=== PATIENT | male | born 1995 | race Caucasian/White ===

== ENCOUNTER 2024-05-28 10:05 | Emergency (ER) | payer OTHER, SELFPAY ==
[2024-05-28] VITALS (19 sets, daily range): BP systolic 117–142; BP diastolic 77–110; PULSE 48–77; RESP 12–24; TEMP 36.6; O2SAT 98–100
--- NOTE | ~2024-05-28 | CT_ITS ---
EXAMINATION: CT abdomen pelvis w con DATE: 05/28/2024 11:20 INDICATION: Right lower quadrant abdominal pain TECHNIQUE: Computed tomography (CT) of the abdomen and pelvis was performed with 100 mL Omnipaque-350 intravenous contrast. Automated exposure control and iterative reconstruction technique were employe d. The dose-length product was 197.20 mGy-cm. COMPARISON: None FINDINGS: Lung bases are clear. Heart size is normal. No pericardial or pleural effusion. Indeterminate 2.3 cm hypodense lesion in the left hepatic lobe. Gallbladder, spleen, pancreas, bilateral adrenal glands an d left kidney are normal. 3 mm stone at the right ureteropelvic junction without hydronephrosis or de layed left right nephrogram. There are however a couple small radiating tracts of decreased enhanceme nt at the upper pole of the right kidney which raises concern for pyelonephritis. No other evident ur olithiasis. Bowels including the appendix are normal with no obstruction or abnormal wall thickening. Bladder and prostate are normal. No free intraperitoneal gas or fluid. No pathologically enlarged ab dominal or pelvic lymphadenopathy. Bones are unremarkable. IMPRESSION: 1. 3 mm nonobstructing stone at the right ureteropelvic junction with subtle bands of decreased paren chymal enhancement the upper pole of the right kidney raising concern for pyelonephritis. Correlate w ith urinalysis. 2. Indeterminate 2.3 cm hypodense left hepatic lobe lesion which in the absence of known liver diseas e or prior malignancy is most likely benign such as a hemangioma. Recommend follow-up with pre and po stcontrast MRI for more definitive determination. Reviewed, dictated and finalized at location A. IMPRESSION: 1. 3 mm nonobstructing stone at the right ureteropelvic junction with subtle ba nds of decreased parenchymal enhancement the upper pole of the right kidney [place] concern for pyelonephritis. Correlate with urinalysis. 2. Indeterminate 2.3 cm hypodense left hepatic lobe lesion which in the absence of known liver disease or prior malignancy is most likely benign such as a hem angioma. Recommend follow-up with pre and postcontrast MRI for more definitive determination.
--- NOTE | 2024-05-28 10:43 | ED.ABDPAIN ---
HPI - Abdominal Pain General Chief Complaint: Abdominal Pain Stated Complaint: RLQ pain, +nausea Time Seen by Provider: 05/28/24 10:21 History of Present Illness HPI narrative: 29-year-old male presents emergency department for evaluation for right lower quadrant pain that started this morning. Patient states yesterday he was feeling fine but woke up this morning with the pain. Patient had a bowel movement but this did not change his symptoms. Patient denies any diarrhea. Patient denies any prior abdominal surgical history. Patient suspects he may have a history of kidney stones but states this feels completely different. At time of evaluation patient declined medications for pain control and for nausea control. Related Data Allergies Allergy/AdvReac Type Severity Reaction Status Date / Time No Known Allergies Allergy Verified 05/28/24 10:42 Review of Systems Review of Systems: All systems reviewed & are unremarkable except as noted in HPI and below Exam Narrative: APPEARANCE: Well appearing, no pain, no distress, well-nourished. HEAD: normocephalic, atraumatic. EYES: PERRLA/EOMI, conjunctivae clear. NOSE: Normal no drainage EARS:TMS clear with good light reflex. THROAT: Pharynx clear, no exudate. NECK: Supple. No adenopathy, no masses. RESPIRATORY: Airway patent, respirations nonlabored. Clear to auscultation bilaterally, no rales, rhonchi, wheezing. CARDIOVASCULAR: Regular rate and rhythm without murmurs rubs or gallops. ABDOMINAL: Right lower quadrant tenderness to palpation, no right CVA tenderness, no rebound, no guarding MUSCULOSKELETAL: Moves all extremities. Strength/ROM intact, No edema, No calf tenderness. NEURO: Alert. Cranial nerves II through XII intact. SKIN: Warm, dry. Normal Color PSYCHIATRIC: Normal affect/mood. Course Course Emergency Course: Patient felt improved treatment patient was discharged home Vital Signs Vital signs: Vital Signs Temperature 97.8 F 05/28/24 10:06 Pulse Rate 60 05/28/24 10:06 Respiratory Rate 18 05/28/24 10:06 Blood Pressure 123/83 05/28/24 10:06 Pulse Oximetry 98 05/28/24 10:06 Oxygen Delivery Room Air 05/28/24 10:06 Temperature 97.8 F 05/28/24 10:06 Pulse Rate 62 05/28/24 13:15 Respiratory Rate 20 05/28/24 13:15 Blood Pressure 120/77 05/28/24 13:01 Pulse Oximetry 99 05/28/24 13:15 Oxygen Delivery Room Air 05/28/24 10:06 MDM - Abdominal Pain MDM Narrative Medical decision making narrative: 29-year-old male present to the emergency department for evaluation for right lower quadrant pain. Patient does have a role or quadrant tenderness to palpation. Patient declined medications for pain control for nausea control. Patient states that his symptoms have improved. Patient is afebrile but does have a minor leukocytosis of 10.9 and a stable hemoglobin of 13.4. No acute abnormalities on his CMP, no evidence of urinary tract infection but patient did have some hematuria. CT scan showed no evidence of acute appendicitis. CT was concerning for possible pyelonephritis but UA only shows hematuria. Patient does have a nonobstructing renal calculi in the right pelvis. Patient's symptoms may be secondary to a passed kidney stone. Patient was encouraged to have close follow-up with Urology. Patient was also educated on reasons to return to the emergency department. All questions concerns were addressed. Differential Diagnosis Differential diagnosis: Likely abdominal pain, acute appendicitis, calculus of kidney, constipation, diverticulitis, gastroenteritis, pancreatitis and small bowel obstruction Lab Data Attestation: I reviewed the patient's lab results. 05/28/24 10:41 05/28/24 10:41 Labs: Lab Results 05/28/24 05/28/24 Range/Units 10:41 12:12 WBC 10.9 H (4.5-10.0) K/mm3 RBC 4.63 (4.6-6.20) M/mm3 Hgb 13.4 L (14.0-18.0) g/dL Hct 41.3 L (42.0-52.0) % MCV 89.2 (80-100) fl
[2024-05-28 10:49] LABS: Basophils Percent Auto 0.3 % (0.2-1.2); Eosinophils Absolute Auto 0.1 K/mm3 (0-0.3); Eosinophils Percent Auto 1.1 % (0-4.4); Hematocrit 41.3 % (42.0-52.0); Hemoglobin 13.4 g/dL (14.0-18.0); Immature Granulocyte Absolute 0.03 K/mm3 (0.00-0.031); Immature Granulocyte Percent A 0.3 % (0-0.5); Lymphocytes Percent Auto 16.5 % (18.3-44.2); Mean Corpuscular HGB Conc 32.4 g/dl (32-36); Mean Corpuscular Hemoglobin 28.9 pg (26-34); Mean Corpuscular Volume 89.2 fl (80-100); Mean Platelet Volume 10.1 fl (7.4-10.4); Monocytes Absolute Auto 0.8 K/mm3 (0.1-0.6); Neutrophils Absolute Auto 8.2 K/mm3 (1.3-6.7); Neutrophils Percent Auto 74.8 % (45.5-73.1); Platelet Count Result 309 k/mm3 (150-375); Red Blood Count 4.63 M/mm3 (4.6-6.20); Red Cell Distribution Width 12.4 % (11.5-14.5); White Blood Count 10.9 K/mm3 (4.5-10.0)
[2024-05-28] MEDS: SODIUM CHLORIDE 0.9% IV 1,000 ML 999 ML IV CONT (10:56)
[2024-05-28 10:58] LABS: Alanine Aminotransferase 30 U/L (6-50); Albumin Level 4.9 g/dL (3.5-5.1); Alkaline Phosphatase 65 U/L (38-126); Anion Gap 9 mmol/L (4-12); Aspartate Amino Transferase 28 U/L (17-59); Bilirubin,Total 0.5 mg/dL (0.2-1.3); Blood Urea Nitrogen 18 mg/dL (9-20); Carbon Dioxide 31 mmol/L (22-30); Chloride 101 mmol/L (98-107); Estimated CRCL calculation 97 ml/min; Estimated Glomerular Filt Rate > 60; Glucose 111 mg/dL (65-110); Lipase 66 U/L (23-300); Potassium 4.7 mmol/L (3.4-5.0); Sodium 141 mmol/L (137-145)
[2024-05-28 11:01] LABS: Partial Thromboplastin Time 25.7 Seconds (22.3-36.8)
[2024-05-28 12:30] LABS: Appearance Urine Clear (Clear); Bacteria Urine None Seen /hpf; Bilirubin Urine Negative (Negative); Blood Urine 2+ (Negative); Color Urine Yellow (Yellow); Glucose Urine UA Negative (Negative); Ketones Urine Negative (Negative); Leukocyte Esterase Ur Negative LEU/UL (Negative); Nitrate Urine Negative (Negative); Non Pathogenic Casts 0-2; Protein Urine Negative (Negative); RBC Urine 51-100 /hpf (0-2); Specific Grav Ur > 1.045 (1.001-1.035); Squamous Epithelial Cell Urine None Seen /hpf (Few); Urobilinogen Urine 0.2 mg/dL (<2.0); WBC Urine 0-5 /hpf (0-3)
[2024-05-28 12:31] LABS: Add Urine Microscopic? YES
== END 2024-05-28 13:32 | disposition home or self-care (01) ==
PROVIDERS: Emergency Provider Emergency Medicine
DX: R10.31 Right lower quadrant pain (principal); R31.9 Hematuria, unspecified; N20.0 Calculus of kidney; K76.9 Liver disease, unspecified
CPT/HCPCS: 36415; 74177; 80053; 81001; 83690; 85025; 85610; 85730; 96360; 99284; J7030; Q9967